=== PATIENT | female | born 1960 | race African-American/Black ===

== ENCOUNTER 2019-08-04 17:56 | Emergency (ER) | payer OTHER ==
[~2019-08-04] VITALS: Ht 167.6 cm; Wt 95.7 kg
--- NOTE | 2019-08-04 18:05 | NUR ---
ED Nurse Note: Patient in room 2. Unaccompanied. Drove self to ER from home and ambulated from parking. Uncomplainjkng of pain but states she has some body aches yesterday and felf feverish. Today difficulty swallowing the saliva it feels thick. Await review.
[2019-08-04] MEDS ORDERED: ZYRTEC10 MG ORAL (18:22)
[2019-08-04] MEDS ORDERED: NEURONTIN300 MG ORAL (18:22)
[2019-08-04] MEDS ORDERED: AUGMENTIN 875-1 EAC1 ORAL (18:22)
[2019-08-04] MEDS ORDERED: NAPROXEN250 MG ORAL (18:22)
--- NOTE | 2019-08-04 18:22 | Emergency Room Report ---
History of Present Illness General Chief Complaint: General Complaint Source: Patient Present Illness HPI 59-year-old female presents with difficulty swallowing secondary to having her teeth removed she states her dentures do not fit properly she denies any chest pain shortness of breath she states that her teeth were removed recently and her dentures do not fit properly severity is moderate. She states she has nasal congestion with thick mucus, and without proper dentures it is difficult to swallow. She also reports chronic right arm pain, feels like shooting pain that comes and goes no aggravating or alleviating factors. No cp or sob. Allergies: Coded Allergies: No Known Allergies (Unverified , 08/04/19) Patient History Past Medical History: see triage record Now: No Reviewed Nursing Documentation: PMH: Agreed; PSxH: Agreed Nursing Documentation-PMH Past Medical History: No History, Except For Review of Systems All Other Systems: negative except mentioned in HPI Physical Exam Vital Signs Date Time Temp Pulse Resp B/P (MAP) Pulse Ox O2 Delivery O2 Flow Rate FiO2 08/04/19 18:04 98.4 84 20 148/84 (105) 98 Sp02 EP Interpretation: reviewed, normal General Appearance: well appearing, no apparent distress, alert Head: normocephalic, atraumatic Eyes: bilateral eye PERRL, bilateral eye EOMI ENT: normal voice, uvula midline, moist mucus membranes, nasal congestion, other - missing all teeth Neck: supple, thyroid normal, supple/symm/no masses Respiratory: lungs clear, no respiratory distress, no retraction, no accessory muscle use Cardiovascular #1: normal peripheral pulses, regular rate, rhythm, no edema, no gallop, no murmur Gastrointestinal: non tender, soft, no guarding, no rebound Musculoskeletal: normal inspection Neurologic: alert, oriented x3 Psychiatric: mood/affect normal Skin: no rash, warm/dry Medical Decision Making Diagnostic Impression: Primary Impression: Encounter for generalized patient complaints Additional Impressions: Sinusitis Qualified Codes: J01.10 - Acute frontal sinusitis, unspecified Neuropathy ER Course 59-year-old female presents with difficulty swallowing after having an appropriate dentures, no acute processes, patient is able to protect her airway , patient is currently swallowing in front of me, patient may have a component of sinusitis given her recent dental procedure and frontal pain will provide patient with antibiotics, mucus thinning agents, disposition home with return precautions. Will also provide patient with pain control for her neuropathy will start gabapentin Last Vital Signs Date Time Temp Pulse Resp B/P (MAP) Pulse Ox O2 Delivery O2 Flow Rate FiO2 08/04/19 18:04 98.4 84 20 148/84 (105) 98 Disposition: HOME, SELF-CARE Condition: Stable Scripts Gabapentin (Neurontin) 300 Mg Capsule 300 MG ORAL DAILY, #30 CAP 0 Refills Prov: Jeet Goss MD 08/04/19 Amoxicillin/Potassium Clav 875-125* (AUGMENTIN 875-125 TABLET*) 1 Each Tablet 1 TAB ORAL TWICE A DAY, #14 TAB Prov: Jeet Goss MD 08/04/19 Cetirizine Hcl* (ZYRTEC*) 10 Mg Tablet 10 MG ORAL DAILY, #30 TAB 0 Refills Prov: Jeet Goss MD 08/04/19 Naproxen* (NAPROSYN*) 250 Mg Tablet 250 MG ORAL BID PRN for For Pain, #20 TAB 0 Refills Prov: Jeet Goss MD 08/04/19 Referrals: Lorin BROWN,REFERRING (PCP) [facility] Lorin Brown [facility] Patient Instructions: Neuropathic Pain, Sinusitis, Adult, [id number] Additional Instructions: The patient was provided with discharge instructions, notified to follow-up with a primary care doctor and or specialist in the next 24-48 hours, and to return to the ED if they have worsening of their symptoms. Please note that this report is being documented using [employer] technology. This can lead to erroneous entry secondary to incorrect interpretation by the dictating instrument. Jeet Goss MD Aug 04, 2019 18:22
--- NOTE | 2019-08-04 18:30 | NUR ---
ER DISCHARGE NOTE: Patient is cleared to be discharged per ERMD, pt is aox4, on room air, with stable vital signs. pt was given dc and prescription instructions, pt was able to verbalize understanding, pt id band removed. pt is able to ambulate with steady gait. pt took all belongings.
[2019-08-04 18:36] VITALS: BP 160/80
== END 2019-08-04 18:35 | disposition home or self-care (01) ==
LOC: EMR 18:14
DX: J01.10 Acute frontal sinusitis, unspecified (principal); G62.9 Polyneuropathy, unspecified
CPT/HCPCS: 99282